=== PATIENT | female | born 1950 | race Caucasian/White ===

== ENCOUNTER 2019-10-04 12:11 | Outpatient (CLI) | payer MEDICARE ==
[~2019-10-04 12:11] MED LIST: REGADENOSON 0.4 MG/5 ML SYRINGE ONE
== END 2019-10-04 23:59 | disposition home or self-care (01) ==
LOC: CFH 12:11
PROVIDERS: ATTEND Internal Medicine Clinical Cardiac Electrophysiology
DX: I07.1 Rheumatic tricuspid insufficiency (principal); I48.0 Paroxysmal atrial fibrillation; I10 Essential (primary) hypertension
CPT/HCPCS: 78452; 93017; 93306; A9502; J2785